=== PATIENT | male | born 1960 | race African-American/Black ===

== ENCOUNTER 2024-05-07 10:24 | Inpatient (IN) | payer OTHER ==
[2024-05-07 10:44] VITALS: BMI 20.7
[2024-05-07] MEDS ORDERED: VANCOMYCIN 1 GM PREMIX (F) 1 GM/200 ML BAG ONE (11:27)
[2024-05-07] MEDS ORDERED: PIPERACILLIN/TAZOB 4.5 GM 4.5 GM/100 ML BAG IVPB ONE (11:27)
[2024-05-07] MEDS: PIPERACILLIN/TAZOB 4.5 GM 4.5 GM in DEXTROSE 5%-WATER 100 ML IVPB ONE (11:45)
[2024-05-07] MEDS: LACTATED RINGERS SOLUTION 1000 ML INFUS.BAG IV ONE ×2 (11:55→13:23)
[2024-05-07 12:24] LABS: VENOUS BASE EXCESS -0.3 mmol/L (-2-2); VENOUS PCO2 46.7 mmHg (38-52); VENOUS PH 7.356 (7.310-7.410)
[2024-05-07 12:29] LABS: ABSOLUTE IMMATURE GRANULOCYTES 0.14 x10^3/uL (0.0-0.031); BASOPHILS # 0.07 x10^3/uL (0.01-0.08); EOSINOPHIL % 0.2 % (0.8-7.0); EOSINOPHILS # 0.03 x10^3/uL (0.04-0.54); HEMATOCRIT 39.3 % (40.1-51.0); HEMOGLOBIN 12.1 g/dL (13.7-17.5); MCHC 30.8 g/dl (32.3-36.5); MEAN CELL VOLUME 93.8 fl (79.0-92.2); MEAN PLT VOLUME 10.4 fl (9.4-12.4); MONOCYTE # 0.78 x10^3/uL (0.30-0.82); MONOCYTE % 4.5 % (5.3-12.2); PLATELET COUNT 574 x10^3/uL (163-337); RDW 12.5 % (12.2-16.4)
[2024-05-07 12:40] LABS: INR 1.25 (0.83-1.09); PROTHROMBIN TIME (PATIENT) 13.6 SEC (9.7-13.0)
[2024-05-07 12:43] LABS: ACTIVATED PTT 31.7 SECONDS (25.2-36.5)
[2024-05-07 13:00] LABS: POTASSIUM 5.5 mmol/L (3.5-5.1)
[2024-05-07 13:02] LABS: CALCIUM 9.1 mg/dL (8.5-10.1)
[2024-05-07 13:03] LABS: ALBUMIN 2.6 g/dl (3.4-5.0)
[2024-05-07] MEDS: VANCOMYCIN 1,000 MG in DEXTROSE 5%-WATER - 250 ML IVPB ONE (13:03)
[2024-05-07 13:06] LABS: CREATININE 1.7 mg/dL (0.55-1.3)
[2024-05-07 13:07] LABS: BILIRUBIN,TOTAL 0.5 mg/dL (0.2-1); TOT PROT 8.2 g/dl (6.4-8.2)
[2024-05-07] MEDS: VANCOMYCIN/WATER FOR INJ (PEG) 1,000 MG/200 ML BAG IVPB ONE (13:23)
[2024-05-07 13:56] LABS: HCV DIAGNOSTIC IN-HOUSE W/RFLX NON-REACTIVE (NONREACTIVE); HIV INTERPRETATION NEGATIVE (NEGATIVE)
[2024-05-07 14:52] LABS: EPI CELLS 1 /uL (0-25.1); HYALINE CASTS 0 /uL (0-3.1); URINE APPEARANCE CLOUDY; URINE BACTERIA 8157 /uL (0-1359); URINE BILIRUBIN NEGATIVE (NEGATIVE); URINE COLOR YELLOW; URINE GLUCOSE (UA) NEGATIVE (NEGATIVE); URINE KETONE 1+ (NEGATIVE); URINE LEUK ESTERASE 3+ (NEGATIVE); URINE NITRITE POSITIVE (NEGATIVE); URINE PROTEIN 1+ (NEGATIVE); URINE RBC 29 /uL (0-23.9); URINE WBC 2007 /uL (0-25.8)
[2024-05-07] MEDS ORDERED: ACETAMINOPHEN 1000 MG/100 ML BAG IVPB PRN (16:07)
[2024-05-07] MEDS: INSULIN ASPART SLIDING SCALE (NOVOLOG) 1 VIAL SQ SCH (17:25)
[2024-05-07] MEDS: PIPERACILLIN/TAZOB 3.375 GM 50 ML IVPB SCH (19:06)
[2024-05-07] MEDS: ACETAMINOPHEN 1000 MG/100 ML BAG IVPB ONE (22:15)
[2024-05-07] MEDS: SODIUM CHLORIDE 1,000 ML IV SCH (22:20)
[2024-05-08] MEDS ORDERED: ACETAMINOPHEN 325 MG TABLET (FP) PO PRN (07:47)
[2024-05-08] MEDS: SODIUM CHLORIDE 1,000 ML IV STA (08:09)
[2024-05-08 08:40] LABS: ABSOLUTE IMMATURE GRANULOCYTES 0.08 x10^3/uL (0.0-0.031); BASOPHILS # 0.06 x10^3/uL (0.01-0.08); EOSINOPHIL % 0.6 % (0.8-7.0); EOSINOPHILS # 0.08 x10^3/uL (0.04-0.54); HEMATOCRIT 33.9 % (40.1-51.0); HEMATOCRIT 34.3 % (40.1-51.0); HEMOGLOBIN 10.4 g/dL (13.7-17.5); HEMOGLOBIN 10.5 g/dL (13.7-17.5); MCHC 30.6 g/dl (32.3-36.5); MCHC 30.7 g/dl (32.3-36.5); MEAN CELL VOLUME 93.9 fl (79.0-92.2); MEAN CELL VOLUME 94.5 fl (79.0-92.2); MEAN PLT VOLUME 10.3 fl (9.4-12.4); MEAN PLT VOLUME 10.4 fl (9.4-12.4); MONOCYTE # 0.87 x10^3/uL (0.30-0.82); MONOCYTE % 6.8 % (5.3-12.2); PLATELET COUNT 512 x10^3/uL (163-337); PLATELET COUNT 514 x10^3/uL (163-337); RDW 12.5 % (12.2-16.4)
[2024-05-08 09:06] LABS: POTASSIUM 4.5 mmol/L (3.5-5.1)
[2024-05-08 09:08] LABS: CALCIUM 8.3 mg/dL (8.5-10.1); MAGNESIUM 2.3 mg/dL (1.8-2.4)
[2024-05-08 09:11] LABS: CREATININE 1.5 mg/dL (0.55-1.3); PHOSPHOROUS 2.9 mg/dL (2.5-4.9)
[2024-05-08 09:13] LABS: BILIRUBIN,TOTAL 0.6 mg/dL (0.2-1); TOT PROT 6.6 g/dl (6.4-8.2)
[2024-05-08 09:48] LABS: Reticulocyte % 1.06 % (0.51-1.81)
[2024-05-08] MEDS ORDERED: SODIUM CHLORIDE 1,000 ML IV SCH ×2 (12:19→13:15)
[2024-05-08] MEDS: VANCOMYCIN/WATER FOR INJ (PEG) 1,000 MG/200 ML BAG IVPB SCH (12:22)
[2024-05-08] MEDS ORDERED: LIDOCAINE HCL 2% (20ML MULTI-DOSE VIAL) ONE (13:11)
[2024-05-08] MEDS ORDERED: BUPIVACAINE HCL/PF 0.5% (5MG/ML) 10 ML VIAL ONE (13:12)
[2024-05-08] MEDS: PIPERACILLIN/TAZOBACTAM 3.375 GM VIAL IVPB ONE (15:06)
[2024-05-08] MEDS ORDERED: MIDAZOLAM HCL 2 MG/2 ML SINGLE DOSE VIAL ONE ×2 (15:08→15:29)
[2024-05-08] MEDS: LIDOCAINE HCL 2% (50ML VIAL) NR ONE (15:23)
[2024-05-08] MEDS ORDERED: ONDANSETRON 4 MG/2 ML VIAL IVPUSH PRN ×2 (16:13→16:28)
[2024-05-08] MEDS ORDERED: LACTATED RINGERS SOLUTION 1,000 ML IV SCH ×2 (16:15→16:28)
[2024-05-08] MEDS: SODIUM CHLORIDE 1,000 ML IV SCH (16:37)
[2024-05-08] MEDS: INSULIN ASPART SLIDING SCALE (NOVOLOG) 1 VIAL SQ SCH (17:53)
[2024-05-09] MEDS: VANCOMYCIN/WATER FOR INJ (PEG) 1,000 MG/200 ML BAG IVPB SCH (00:03)
[2024-05-09] MEDS: ACETAMINOPHEN 325 MG TABLET (FP) PO PRN (01:09)
[2024-05-09] MEDS: PIPERACILLIN/TAZOB 3.375 GM 3.375 GM/50 ML BAG IVPB SCH (02:08)
[2024-05-09 09:42] LABS: HEMATOCRIT 35.4 % (40.1-51.0); HEMOGLOBIN 10.8 g/dL (13.7-17.5); MCHC 30.5 g/dl (32.3-36.5); MEAN CELL VOLUME 94.7 fl (79.0-92.2); MEAN PLT VOLUME 11.7 fl (9.4-12.4); PLATELET COUNT 411 x10^3/uL (163-337); RDW 12.5 % (12.2-16.4)
[2024-05-09 09:52] LABS: POTASSIUM 4.7 mmol/L (3.5-5.1)
[2024-05-09 10:02] LABS: BLOOD UREA NITROGEN 15.9 mg/dL (7-18); MAGNESIUM 1.9 mg/dL (1.8-2.4)
[2024-05-09 10:03] LABS: CALCIUM 8.2 mg/dL (8.5-10.1)
[2024-05-09 10:04] LABS: CREATININE 1.4 mg/dL (0.55-1.3)
[2024-05-09 10:05] LABS: PHOSPHOROUS 2.9 mg/dL (2.5-4.9)
[2024-05-09 10:06] LABS: BILIRUBIN,TOTAL 0.3 mg/dL (0.2-1)
[2024-05-09] MEDS: PIPERACILLIN/TAZOB 3.375 GM 50 ML IVPB SCH (10:22)
[2024-05-09] MEDS ORDERED: VANCOMYCIN/WATER FOR INJ (PEG) 1,000 MG/200 ML BAG IVPB SCH (13:02)
[2024-05-10 08:30] LABS: HEMATOCRIT 32.1 % (40.1-51.0); MCHC 31.2 g/dl (32.3-36.5); MEAN CELL VOLUME 93.6 fl (79.0-92.2); MEAN PLT VOLUME 9.9 fl (9.4-12.4); PLATELET COUNT 495 x10^3/uL (163-337); RDW 12.4 % (12.2-16.4)
[2024-05-10 08:39] LABS: POTASSIUM 4.6 mmol/L (3.5-5.1)
[2024-05-10 08:49] LABS: BLOOD UREA NITROGEN 11.1 mg/dL (7-18); CALCIUM 8.1 mg/dL (8.5-10.1)
[2024-05-10 08:50] LABS: ALBUMIN 1.8 g/dl (3.4-5.0)
[2024-05-10 08:53] LABS: CREATININE 1.3 mg/dL (0.55-1.3)
[2024-05-10 08:54] LABS: BILIRUBIN,TOTAL 0.3 mg/dL (0.2-1); TOT PROT 6.1 g/dl (6.4-8.2)
[2024-05-10 20:46] VITALS: RESP 18
[2024-05-11 08:28] LABS: HEMOGLOBIN 9.6 g/dL (13.7-17.5); MEAN CELL VOLUME 92.8 fl (79.0-92.2); MEAN PLT VOLUME 10.2 fl (9.4-12.4); PLATELET COUNT 506 x10^3/uL (163-337); RDW 12.2 % (12.2-16.4)
[2024-05-11 08:42] LABS: POTASSIUM 4.9 mmol/L (3.5-5.1)
[2024-05-11 08:45] LABS: CALCIUM 8.4 mg/dL (8.5-10.1)
[2024-05-11 08:46] LABS: ALBUMIN 1.8 g/dl (3.4-5.0); BLOOD UREA NITROGEN 11.4 mg/dL (7-18)
[2024-05-11 08:49] LABS: CREATININE 1.2 mg/dL (0.55-1.3)
[2024-05-11 08:50] LABS: BILIRUBIN,TOTAL 0.2 mg/dL (0.2-1); TOT PROT 6.3 g/dl (6.4-8.2)
[2024-05-12] MEDS: PIPERACILLIN/TAZOB 3.375 GM 3.375 GM in DEXTROSE 5%-WATER - 50 ML IVPB SCH (01:31)
[2024-05-12 02:24] VITALS: BP 119/65; PULSE 60; TEMP 98.2
== END 2024-05-12 09:57 | disposition home or self-care (01) | DRG 617 ==
LOC: JER 10:24 → EDBD 10:24 → JERBED 13:24 → J6S 16:16
PROVIDERS: ADMIT Internal Medicine; ATTEND Internal Medicine
PROC: 0Y6P0Z0 Detachment at Right 1st Toe, Complete, Open Approach (ICD-10-PCS; principal; 2024-05-08 14:30)
DX: E11.69 Type 2 diabetes mellitus with other specified complication (principal); E11.52 Type 2 diabetes mellitus with diabetic peripheral angiopathy with gangrene; M86.10 Other acute osteomyelitis, unspecified site; I96 Gangrene, not elsewhere classified; R78.81 Bacteremia; A49.1 Streptococcal infection, unspecified site; E13.621 Other specified diabetes mellitus with foot ulcer; L97.519 Non-pressure chronic ulcer of other part of right foot with unspecified severity; I10 Essential (primary) hypertension; E78.5 Hyperlipidemia, unspecified
CPT/HCPCS: 0241U-QW; 36415; 71045-TC-FY; 73630-TC-LT; 73630-TC-RT-FY; 80053; 81003; 82272; 82728; 82803; 82962; 83036; 83540; 83550; 83605; 83735; 84100; 84484; 85025; 85027; 85610; 85651; 85730; 86140; 86803; 86850; 86900; 86901; 87040; 87070; 87075; 87086; 87186; 87205; 87389; 88305-TC; 88311-TC; 93005; 93010; 93922; 93926-TC; 94760; 99285-25; G0480